=== PATIENT | male | born 1970 | race Caucasian/White ===

== ENCOUNTER → 2017-05-03 | Outpatient (CLI) | payer BC | LOC: FIMAGING 18:32 | PROVIDERS: ATTEND Psychiatry & Neurology Neurology | DX: E80.6 Other disorders of bilirubin metabolism (principal) ==

== ENCOUNTER → 2017-05-13 | Outpatient (CLI) | payer BC ==
--- NOTE | 2017-05-14 17:57 | CPEEG ---
[f rep st] ELECTROENCEPHALOGRAM FOUR-HOUR VIDEO ELECTROENCEPHALOGRAM. DATE OF STUDY: 05/13/2017 DATE OF INTERPRETATION: 05/14/2017 INTERPRETATION: This 4-hour video EEG recording is normal. There were no potentially epileptogenic abnormalities present in the awake or sleep recordings. During the video EEG monitoring session, t he patient denied any clinical events. REPORT: This 4-hour video EEG contains 10 to 11 Hz alpha activity to the posterior head regions. T he background activity was normal and symmetric. There was no abnormal activation at rest, during p hotic stimulation, or hyperventilation. The patient had a normal posthyperventilation buildup respo nse, composed of rhythmic theta and delta activity. The patient became drowsy and fell into sustain ed sleep during the study. There was no abnormal activation during drowsiness, sleep, or during lei es of arousal. The patient did not have any clinical events during the video EEG monitoring session . /[id number]/MODL
== END ==
LOC: FCPNEURO 08:45
PROVIDERS: ATTEND Psychiatry & Neurology Neurology
DX: G93.40 Encephalopathy, unspecified (principal); E80.6 Other disorders of bilirubin metabolism

== ENCOUNTER 2017-06-30 13:16 | Day surgery (SDC) | payer BC ==
[2017-06-30] MEDS ORDERED: BENZOCAINE UNIT DOSE SPRAY HURRICAINE MM ONE (13:19)
[2017-06-30] MEDS ORDERED: NS 1,000 ML IV ONE (13:19)
[2017-06-30] MEDS ORDERED: fentaNYL 100 MCG/2 ML INJ IVP ONE (13:19)
[2017-06-30] MEDS ORDERED: MIDAZOLAM 2 MG/2 ML VIAL IVP ONE (13:19)
[2017-06-30] MEDS ORDERED: MIDAZOLAM 2 MG/2 ML VIAL ONE (15:37)
--- NOTE | 2017-07-01 16:29 | ECHO ---
[id number] + + [address] : : [facility] [address] : : [phone] + + Transesophageal Echocardiographic Report + ---+ :Name: ANA PÉREZ SStudy Date: 06/30/2017 02:49 PM : : Hospital Admission Number: [id number] Location: [facility]: :: 1970 Gender: Male : :Age: 46 yrs Race: : :Reason For Study: Eval Aortic Valve : :History: Eval Aortic Valve : + ---+ Left Ventricle The left ventricular ejection fraction is normal. Right Ventricle The right ventricular systolic function is normal. Atria Injection of contrast documented no interatrial shunt. The interatrial septum is intact with no evidence for an atrial septal defect. Mitral Valve The mitral valve is normal in structure and function. There is no evidence of mitral valve prolapse. There is no mitral valve stenosis. There is no mitral regurgitation noted. Tricuspid Valve Normal tricuspid valve. There is trace to mild tricuspid regurgitation. Aortic Valve The aortic valve is functionally bicuspid with a raphe of the right and left coronary cusp. There is moderate aortic insufficiency. There is no aortic stenosis. Pulmonic Valve The pulmonic valve is normal in structure and function. There is no pulmonic valvular regurgitation. Vessels The aortic root is normal size. Procedure NPO status confirmed, informed consent obtained, and timeout performed. Adequate conscious sedation was acheived with versed and fentanyl IV. MARY probe was passed without difficulty. Conclusion A 2D transesophageal echocardiogram with color flow Doppler was performed. The left ventricular ejection fraction is normal. Injection of contrast documented no interatrial shunt. The interatrial septum is intact with no evidence for an atrial septal defect. The mitral valve is normal in structure and function. Normal tricuspid valve There is trace to mild tricuspid regurgitation. The aortic valve is functionally bicuspid with a raphe of the right and left coronary cusp. There is moderate aortic insufficiency. There is no aortic stenosis. The aortic root is normal size. Final Reading Physician: Dr Valery Shipman electronically signed on 07/01/2017 04:27 PM Ordering Physician: Valery Shipman Performed By: Dr Valery Shipman
== END 2017-06-30 17:30 | disposition home or self-care (01) ==
LOC: FCATH 13:16
PROVIDERS: ATTEND Internal Medicine Cardiovascular Disease
PROC: B246ZZ4 Ultrasonography of Right and Left Heart, Transesophageal (ICD-10-PCS; principal; 2017-06-30)
DX: I35.9 Nonrheumatic aortic valve disorder, unspecified (principal); K21.9 Gastro-esophageal reflux disease without esophagitis
CPT/HCPCS: J2250; J3010

== ENCOUNTER → 2017-07-07 | Outpatient (CLI) | payer BC | LOC: CIMAGING 08:26 | PROVIDERS: ATTEND Internal Medicine Cardiovascular Disease | DX: Z03.89 Encounter for observation for other suspected diseases and conditions ruled out (principal) | CPT/HCPCS: 71250-PO ==

== ENCOUNTER → 2017-07-28 | Outpatient (CLI) | payer BC ==
[~2017-07-28] MED LIST: IOPAMIDOL (ISOVUE 370) 100 ML BTL IV ONE
== END ==
LOC: CIMAGING 08:39
PROVIDERS: ATTEND Internal Medicine Cardiovascular Disease
DX: G43.909 Migraine, unspecified, not intractable, without status migrainosus (principal); R29.818 Other symptoms and signs involving the nervous system; Q23.1 Congenital insufficiency of aortic valve
CPT/HCPCS: 70496-PO; Q9967

== ENCOUNTER → 2018-08-05 | Outpatient (CLI) | payer BC | LOC: BMCIMAGING 14:21 | PROVIDERS: ATTEND Internal Medicine | DX: J98.09 Other diseases of bronchus, not elsewhere classified (principal) ==